=== PATIENT | male | born 1960 | race Caucasian/White ===

== ENCOUNTER → 2017-01-02 | Outpatient (CLI) | payer OTHER ==
[~2017-01-02] MED LIST: AMBIEN10 M1 JT; AMOXICILLIN500 MG PO; ATENOLOL25 MG PO; BUMETANIDE1 MG PO; BUMEX2.5 MG/10 PO; CARDIZEM30 MG PO; CEFTRIAXONE2 GM IV; CITALOPRAM40 MG PO; CLONIDINE PO; CORBAN MAGNESI400 MG PO; COUMADIN10 M1 PO; COUMADIN6 M1 PO; COZAAR25 M1 PO; CYCLOBENZAPRINE10 MG PO; Coumadin10 MG PO; FENOFIBRATE MI200 MG PO; FERROUS SULFAT150 MG PO; FLEXERIL10 MG PO; FLONASE0.05 MG/AC NS; FOSAMAX70 MG PO; HUMALOG100 U/ML SC; HUMULIN 70/30 703 M1 SC; HUMULIN N100 U/ML SC; HUMULIN R U-500 U/ML SC; IRON325 M1 PO; JANTOVEN10 MG PO; K + POTASSIUM20 MEQ PO; KEFLEX500 M1 PO; LASIX40 MG PO; LASIX80 MG PO; LEVEMIR10 ML SC; LEVOFLOXACIN500 MG PO; LEXAPRO20 MG PO; LOFIBRA200 MG PO; LOPRESSOR25 MG PO; LOPRESSOR50 M1 PO; LYRICA75 MG PO; MAGNESIUM OXID400 MG PO; METFORMIN1000 MG PO; MIRAPEX0.125 MG PO; MYSOLINE50 M1 PO; MYSOLINE50 M2 PO; NEURONTIN600 MG PO; NORTRIPTYLINE H10 M1 PO; NORTRIPTYLINE H50 M1 PO; NORTRIPTYLINE PO; NORVASC5 MG PO; Orphenadrine C100 MG PO; PERCOCET 325 MG1 TA2 PO; PERCOCET 325 MG1 TA6 PO; PERCOCET 325 MG1 TA7 PO; PERCOCET 650 MG1 TA1 PO; PRAVACHOL80 M1 PO; REQUIP XL4 MG PO; SYNTHROID0.1 MG PO; Synthroid,Lev100 MCG PO; TRAD5TAB1 PO; TRIGLIDE160 MG PO; VICODIN ES 7501 TAB PO; VITAMIN D10000 UNIT PO; VITAMIN D2000 IU PO; VITAMIN D5000 I2 PO; VITAMIN D50000 I2 PO; WELLBUTRIN XL150 MG PO; WELLBUTRIN100 M1 PO; Zaroxolyn,Diul2.5 MG PO
[2017-01-02 13:36] LABS: BASO # 0.1 10*3/uL (0.0-0.1); BASO % 0.6 % (0.0-1.0); EOS # 0.3 10*3/uL (0.0-0.4); EOS % 3.1 % (1.0-4.0); HEMATOCRIT 37.4 % (42.0-52.0); HEMOGLOBIN 11.4 g/dl (14.0-18.0); IG # 0.1 10*3/uL (0.0-0.1); LYMPH # 1.7 10*3/uL (1.3-4.4); LYMPH % 18.4 % (27.0-41.0); MEAN CORPUSCULAR HGB 27.7 pg (27.0-31.0); MEAN CORPUSCULAR HGB CONC 30.5 g/dl (33.0-37.0); MEAN PLATELET VOLUME 9.3 fl (9.6-12.3); MONO # 0.7 10*3/uL (0.1-1.0); MONO % 6.9 % (3.0-9.0); NEUT # 6.6 10*3/uL (2.3-7.9); NEUT % 70.5 % (47.0-73.0); PLATELET COUNT AUTOMATED 254 10*3/uL (130-400); RED BLOOD COUNT 4.11 10*6/uL (4.50-5.90); RED CELL DISTRI WIDTH 14.1 % (0-14.5); WHITE BLOOD COUNT 9.4 10*3/uL (4.8-10.8)
[2017-01-02 13:38] LABS: BILIRUBIN NEGATIVE (NEGATIVE); BLOOD 2+ (NEGATIVE); CLARITY CLEAR (CLEAR); COLOR YELLOW (YELLOW); GLUCOSE 3+ (NEGATIVE); KETONE NEGATIVE (NEGATIVE); LEUKO ESTERASE NEGATIVE (NEGATIVE); NITRITE NEGATIVE (NEGATIVE); PROTEIN 2+ (NEGATIVE); UROBILINOGEN 0.2 E.U./dl (0.2-1.0)
[2017-01-02 13:45] LABS: URINE TP/CRE RATIO 5.2 (<0.21)
[2017-01-02 14:03] LABS: ALBUMIN 3.3 gm/dl (3.1-4.5); PHOSPHOROUS 4.4 mg/dL (2.5-4.9); POTASSIUM 5.5 mmol/L (3.5-5.1)
[2017-01-02 14:27] LABS: VITAMIN D, 25-HYDROXY 42.8 ng/mL (30-100)
[2017-01-02 14:28] LABS: PTH INTACT 42.4 pg/mL (14.0-72.0)
== END | disposition home or self-care (01) ==
LOC: LAB 01:49
PROVIDERS: Internal Medicine Nephrology
DX: N18.3 Chronic kidney disease, stage 3 (moderate) (principal); N17.9 Acute kidney failure, unspecified; E55.9 Vitamin D deficiency, unspecified